=== PATIENT | male | born 1965 | race Caucasian/White ===

== ENCOUNTER 2017-06-21 11:33 | Emergency (ER) | payer SELFPAY ==
[2017-06-21 14:31] VITALS: BP 127/69
--- NOTE | 2017-06-21 15:17 | ED ---
Upper Extremity Pain - HPI Summary HPI Summary: 52 yr old male with redness to left thumb for 1.5 weeks. In the triage note it reports he denied any injury. The patient states he heats with wood and thinks he might have gotten a sliver under left left thumb nail, and then he removed it. The patient reports that he has been putting antibiotic ointment on the thumb. He reports the thumb has been draining as well. Pain is moderate. He has no other complaints. 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 He has no other complaints. - History of Current Complaint Chief Complaint: [place] Stated Complaint: LEFT THUMB COMPLAINT Time Seen by Provider: 06/21/17 14:38 - Allergies/Home Medications Allergies/Adverse Reactions: Allergies Allergy/AdvReac Type Severity Reaction Status Date / Time No Known Allergies Allergy Verified 06/21/17 14:31 Home Medications: Home Medications Escitalopram (NF) [Lexapro 20 mg (NF)] 1 tab PO DAILY 06/21/17 [History Confirmed 06/21/17] PMH/Surg Hx/FS Hx/Imm Hx Infectious Disease History: No Infectious Disease History: Denies: Traveled Outside the [place] in Last 30 Days - Family History Known Family History: Positive: None - Social History Occupation: Employed Full-time Alcohol Use: None Substance Use Type: Reports: None Smoking Status (MU): Never Smoked Tobacco Review of Systems Constitutional: Negative Positive: Other - drainage from left thumb All Other Systems Reviewed And Are Negative: Yes Physical Exam Triage Information Reviewed: Yes Vital Signs On Initial Exam: Initial Vitals Temp Pulse Resp BP Pulse Ox 98.4 F 77 14 127/69 99 06/21/17 14:28 06/21/17 14:28 06/21/17 14:28 06/21/17 14:28 06/21/17 14:28 Vital Signs Reviewed: Yes Appearance: Positive: Well-Appearing, No Pain Distress Head/Face: Positive: Normal Head/Face Inspection Eyes: Positive: EOMI Neck: Positive: Nontender Respiratory/Lung Sounds: Positive: Other - normal effort Cardiovascular: Positive: Other - good radial pulse and cap refill Abdomen Description: Negative: Distended Musculoskeletal: Positive: Other - left thumb with paronychia present; no felon. He has no obvious FB seen under his nail. no cellulitis proximal to the paronychia Neurological: Positive: Alert, Oriented to Person Place, Time Psychiatric: Positive: Normal Procedures - Incision and Drainage Site: left thumb Anesthesia: Other - non- the patient did not want a digital block, and there is no ethyl chloride spray stocked here anymore. Instrument(s): Scalpel - 11 blade Packing: Other - approximately 2 cc of pus drained from the paronychia. Diagnostics - Vital Signs Vital Signs Temp Pulse Resp BP Pulse Ox 06/21/17 14:28 98.4 F 77 14 127/69 99 - Laboratory Lab Statement: Any lab studies that have been ordered have been reviewed, and results considered in the medical decision making process. Course/Dx - Course Course Of Treatment: 52 yr old male with I/D of paronychia. Plan rx with bactrim DS and referred to Ortho for follow up given possiblility of retain FB under nail bed. [facility] called and patient information given to them. Patient calling to get apointment time for next week. - Diagnoses Provider Diagnoses: Paronychia, Retained foreign body of thumb Discharge - Discharge Plan Condition: Good Disposition: HOME Prescriptions: Sulfamethox/Trimethoprim DS* [Bactrim DS 800/160 TAB*] 1 tab PO BID #20 tab Patient Education Materials: Soft Tissue Foreign Body (ED), Paronychia (ED) Referrals: Maggy Morgan MD [Medical Doctor] - Tulio Weinstein MD [Medical Doctor] - 4 Days Additional Instructions: be sure to call the orthopedic doctor to be reevaluated for possible foreign body under your nail.
[2017-06-21] MEDS: Tetan/Diph/Pertus SYR(Tdap)* 0.5 ML SYR(BOOSTRIX) use SYR IM ONE (15:22)
== END 2017-06-21 15:27 | disposition home or self-care (01) ==
LOC: UCCORT 11:33
DX: L03.012 Cellulitis of left finger (principal); M79.5 Residual foreign body in soft tissue; Z23 Encounter for immunization
CPT/HCPCS: 10060; 90715; 96372; 99212; G0463